=== PATIENT | male | born 1990 | race American Indian/Alaskan Native ===

== ENCOUNTER 2018-06-03 14:43 | Outpatient (CLI) | payer BC | END 2018-06-03 19:29 | disposition home or self-care (01) | LOC: RAD 14:43 | DX: M54.5 Low back pain (principal) ==

== ENCOUNTER 2022-08-26 07:49 | Outpatient (CLI) | payer BC | END 2022-08-26 19:00 | disposition home or self-care (01) | LOC: US 07:49 | PROVIDERS: ATTEND Internal Medicine Gastroenterology | DX: R10.10 Upper abdominal pain, unspecified (principal) ==